=== PATIENT | female | born 1960 | race Caucasian/White ===

== ENCOUNTER 2020-08-17 10:16 | Emergency (ER) | payer OTHER, SELFPAY ==
[2020-08-17] VITALS (10 sets, daily range): BP systolic 106–126; BP diastolic 56–82; PULSE 57–79; RESP 12–17; TEMP 36.4; O2SAT 95–100
--- NOTE | 2020-08-17 10:38 | ED.GENADULT ---
HPI - General Adult General Chief complaint: Overdose Stated complaint: INTENTIONAL OD Time Seen by Provider: 08/17/20 10:20 Source: patient, family and RN notes reviewed Mode of arrival: ambulatory Limitations: no limitations History of Present Illness HPI narrative: Patient is 60-year-old female who presents after taking 6 of her Robaxin this morning after arguing with her patient notes that she has been under increasing stress with multiple family related issues with her parents and daughter patient notes that she took the medications to go to sleep. Patient denies any suicidal or homicidal ideation at this time or any similar occurrence in the past. On arrival patient notes nausea denies any pain. Patient is ANO x4 on arrival. Patient lives at home with her Related Data Home Medications Medication Instructions Recorded Confirmed fluticasone propion-salmeterol INHALATION 08/17/20 [Advair Diskus] Allergies Allergy/AdvReac Type Severity Reaction Status Date / Time codeine Allergy Unknown Headache Verified 08/17/20 10:36 Penicillins Allergy Unknown Unknown Verified 08/17/20 10:36 Review of Systems Review of Systems: All systems reviewed & are unremarkable except as noted in HPI and below PMFSH Past Medical History Medical History (Updated 08/17/20 @ 14:30 by Branden Gordon PA-C) Crohn's colitis Surgical History Surgical History (Updated 08/17/20 @ 10:40 by Branden Gordon PA-C) H/O ileostomy Exam Narrative: Exam Narrative: GENERAL: Well-appearing, well-nourished, and in no acute distress. HEAD: Normocephalic, atraumatic. EYES: PERRLA and EOMI. ENT: Nares clear, no rhinorrhea or epistaxis. Mucous membranes moist. CHEST: Clear to auscultation. No respiratory distress. No wheezes rales or rhonchi HEART: Regular rate and rhythm. No murmur heard. Normal peripheral pulses. ABDOMEN: Soft, nontender, nondistended EXTREMITIES: Normal range of motion. No edema. SKIN: Warm, dry, no rash. NEURO: No focal deficits. Alert and oriented x3. PSYCH: Patient presents as tearful on arrival with normal affect Course Course Emergency Course: Patient was evaluated after taking 6 of her Robaxin did not consume a toxic amount was evaluated no high risk changes in the evaluation patient agrees to plan for follow-up with crisis denying any suicidal or homicidal ideation noting that this was related to an argument with her who she lives with both she and her feel comfortable with the plan to go home. Have been provided with reasons to return Vital Signs Vital signs: Vital Signs Pulse Rate 79 08/17/20 10:21 Respiratory Rate 13 08/17/20 10:21 Blood Pressure 117/56 L 08/17/20 10:21 Pulse Oximetry 97 08/17/20 10:21 Temperature 97.5 F L 08/17/20 10:55 Pulse Rate 72 08/17/20 14:15 Respiratory Rate 17 08/17/20 14:15 Blood Pressure 126/82 08/17/20 14:15 Pulse Oximetry 100 08/17/20 14:15 Medical Decision Making MDM Narrative Medical decision making narrative: Patient in the room at this time no distress resting comfortably agreeing to follow-up as instructed. Patient agrees to follow-up as instructed and will return if symptoms worsen Vital Signs Vital Signs: Vital Signs Pulse Rate 79 08/17/20 10:21 Respiratory Rate 13 08/17/20 10:21 Blood Pressure 117/56 L 08/17/20 10:21 Pulse Oximetry 97 08/17/20 10:21 Temperature 97.5 F L 08/17/20 10:55 Pulse Rate 72 08/17/20 14:15 Respiratory Rate 17 08/17/20 14:15 Blood Pressure 126/82 08/17/20 14:15 Pulse Oximetry 100 08/17/20 14:15 Lab Data Result diagrams: 08/17/20 10:54 08/17/20 10:54 Labs: Lab Results 08/17/20 08/17/20 08/17/20 Range/Units 10:54 10:54 10:54 WBC 9.7 (4.5-10.0) K/mm3 RBC 4.77 (4.2-5.4) M/mm3 Hgb 14.3 (12.0-15.0) g/dL Hct 42.9 (37.0-47.0) % MCV 89.9 (80-100) fl MCH 30.0 (26-34) pg MCHC
[2020-08-17] MEDS: SODIUM CHLORIDE 0.9% IV 1,000 ML 999 ML IV CONT (10:42)
[2020-08-17] MEDS: FAMOTIDINE 20 MG/2 ML VIAL IV PUSH (10:43)
--- NOTE | 2020-08-17 11:10 | PC.NURSE ---
spoke with Jailyn DAY from poison control. RN stated that doses higher than 6000 mg are considered toxic, the peak of this drug is in 2 hrs. The RN recommended symptomatic and supportive care, anti emetics as needed.
[2020-08-17 11:14] LABS: Basophils Absolute Auto 0.1 K/mm3 (0.0-0.1); Basophils Percent Auto 0.9 % (0.2-1.2); Eosinophils Absolute Auto 0.1 K/mm3 (0-0.3); Eosinophils Percent Auto 0.8 % (0-4.4); Hematocrit 42.9 % (37.0-47.0); Hemoglobin 14.3 g/dL (12.0-15.0); Lymphocytes Absolute Auto 3.43 K/mm3 (0.9-3.2); Lymphocytes Percent Auto 35.2 % (18.3-44.2); Mean Corpuscular HGB Conc 33.3 g/dl (32-36); Mean Corpuscular Volume 89.9 fl (80-100); Mean Platelet Volume 9.9 fl (7.4-10.4); Monocytes Absolute Auto 0.6 K/mm3 (0.1-0.6); Monocytes Percent Auto 6.2 % (2.6-8.5); Neutrophils Absolute Auto 5.4 K/mm3 (1.3-6.7); Neutrophils Percent Auto 55.9 % (45.5-73.1); Platelet Count Result 251 k/mm3 (150-375); Red Blood Count 4.77 M/mm3 (4.2-5.4); Red Cell Distribution Width 12.3 % (11.5-14.5); White Blood Count 9.7 K/mm3 (4.5-10.0)
[2020-08-17 11:16] LABS: Acetaminophen < 10 ug/mL (10-30); Salicylate < 1.0 mg/dL (2-20)
[2020-08-17 11:17] LABS: Ethanol < 10 mg/dL (<10)
[2020-08-17 11:22] LABS: Alanine Aminotransferase 30 U/L (4-35); Albumin Level 4.4 g/dL (3.5-5.1); Alkaline Phosphatase 112 U/L (38-126); Anion Gap 13 mmol/L (8-16); Aspartate Amino Transferase 33 U/L (14-36); Bilirubin,Total 0.9 mg/dL (0.2-1.3); Blood Urea Nitrogen 15 mg/dL (7-17); Calcium 9.6 mg/dL (8.4-10.2); Carbon Dioxide 19 mmol/L (22-30); Chloride 106 mmol/L (98-107); Estimated CRCL calculation 79 ml/min; Estimated Glomerular Filt Rate > 60; Glucose 159 mg/dL (65-105); Sodium 138 mmol/L (137-145)
[2020-08-17 11:24] LABS: Amphetamine Screen Urine Negative (Negative); Barbiturate Screen Urine Negative (Negative); Benzodiazepines Screen Urine Negative (Negative); Cannabinoid Screen Urine Negative (Negative); Cocaine Screen Urine Negative (Negative); Methadone Screen Urine Negative (Negative); Opiate Screen Urine Negative (Negative); Phencyclidine Screen Urine Negative (Negative)
[2020-08-17 11:25] LABS: Add Urine Microscopic? YES; Appearance Urine Clear (Clear); Bilirubin Urine 2+ (Negative); Blood Urine Negative (Negative); Color Urine Yellow (Yellow); Glucose Urine UA Negative (Negative); Ketones Urine 1+ mg/dL (Negative); Leukocyte Esterase Ur Trace LEU/UL (Negative); Mucus Urine Few /lpf; Nitrate Urine Negative (Negative); Protein Urine 1+ mg/dL (Negative); RBC Urine 0-2 /hpf (0-2); Specific Grav Ur 1.027 (1.001-1.035); Squamous Epithelial Cell Urine Rare /hpf (Few); Urobilinogen Urine Negative mg/dL (<2.0); WBC Urine 0-3 /hpf
--- NOTE | 2020-08-17 11:34 | PC.NURSE ---
spoke with crisis. Crisis stated they would evaluate her after she was medically cleared, by poison control.
[2020-08-17 11:52] LABS: Thyroid Stimulating Hormone 0.689 uIU/mL (0.465-4.680)
--- NOTE | 2020-08-17 12:32 | PC.NURSE ---
spoke with crisis again, was told crisis would be here within 90 minutes.
[2020-08-17] MEDS: PROMETHAZINE HCL 25 MG/ML AMPUL 12.5 MG IV PUSH (13:21)
--- NOTE | 2020-08-17 14:22 | PC.NURSE ---
Krysta from crisis states that she spoke with patient and with provider and decided on a safety plan for patient
== END 2020-08-17 14:41 | disposition home or self-care (01) ==
PROVIDERS: Emergency Medicine Emergency Medical Services; Emergency Provider Emergency Medicine
DX: T42.8X2A Poisoning by antiparkinsonism drugs and other central muscle-tone depressants, intentional self-harm, initial encounter (principal); K50.90 Crohn's disease, unspecified, without complications; F32.9 Major depressive disorder, single episode, unspecified
CPT/HCPCS: 36415; 80053; 80307; 81001; 84443; 85025; 96361; 96374; 96375; 99284; J2550; J7030